=== PATIENT | male | born 1985 | race Caucasian/White ===

== ENCOUNTER 2016-09-24 11:58 | Emergency (ER) | payer SELFPAY ==
[2016-09-24 12:39] VITALS: BP 137/88
[2016-09-24] MEDS ORDERED: Naproxen TAB* 250 MG PO ONE (13:45)
[2016-09-24] MEDS ORDERED: Cyclobenzaprine TAB* 10 MG PO ONE (13:45)
--- NOTE | 2016-09-24 13:55 | UC ---
Back Pain HPI - HPI Summary HPI Summary: Bent over at work about 4 hours ago, picked up heavy crate and felt sudden sharp pain in mid/L lower back. Had trouble standing up right away. Denies any leg weakness or radiating pain, no numbness in saddle region. No hx of back injury or surgery. - History of Current Complaint Chief Complaint: UCBackPain Stated Complaint: BACK INJURY Time Seen by Provider: 09/24/16 13:38 Hx Obtained From: Patient Onset/Duration: Sudden Onset Timing: Constant Severity Initially: Moderate Severity Currently: Moderate Back Pain: Is Discrete @ Character: Sharp - with movement, Aching, Spasmodic, Stiffness Aggravating: Movement, Walking Alleviating: Rest Associated Signs And Symptoms: Negative: Swelling, Redness, Bruising, Weakness, Numbness, Tingling, Abdominal Pain, Bladder Incontinence, Bowel Incontinence - Allergies/Home Medications Allergies/Adverse Reactions: Allergies Allergy/AdvReac Type Severity Reaction Status Date / Time Cherries Allergy Itching Uncoded 09/24/16 12:41 Seasonal Allergies Allergy Eyes Uncoded 09/24/16 12:39 Itchy/Swollen/Red/Watery PMH/Surg Hx/FS Hx/Imm Hx Previously Healthy: Yes Endocrine History Of: Denies: Diabetes, Thyroid Disease Cardiovascular History Of: Denies: Cardiac Disorders, Hypertension Respiratory History Of: Denies: COPD, Asthma GI/ History Of: Denies: Ulcer - Surgical History Surgical History: None - Family History Known Family History: Negative: Blood Disorder - Social History Occupation: Employed Full-time - [employer] Alcohol Use: Daily Alcohol Amount: couple beers after work Substance Use Type: None Smoking Status (MU): Light Every Day Tobacco Smoker Type: Cigarettes Amount Used/How Often: 3 cigs per day Have You Smoked in the Last Year: Yes Household Exposure Type: Cigarettes - Immunization History Most Recent Tetanus Shot: 2012 Review of Systems Constitutional: Negative Skin: Negative Eyes: Negative ENT: Negative Respiratory: Negative Cardiovascular: Negative Gastrointestinal: Negative Genitourinary: Negative Motor: Negative Neurovascular: Negative Musculoskeletal: Myalgia Neurological: Negative Psychological: Negative All Other Systems Reviewed And Are Negative: Yes Physical Exam Triage Information Reviewed: Yes Appearance: Well-Appearing, Pain Distress - with movement Vital Signs: Initial Vital Signs Pulse 95 09/24/16 12:31 Resp 18 09/24/16 12:31 BP 137/88 09/24/16 12:31 Pulse Ox 97 09/24/16 12:31 Vital Signs Reviewed: Yes Eye Exam: Normal, Other - PERRL Eyes: Positive: Conjunctiva Clear ENT Exam: Normal ENT: Positive: Normal ENT inspection, Hearing grossly normal, Pharynx normal, TMs normal Dental Exam: Normal Neck exam: Normal Neck: Positive: Supple, Nontender, No Lymphadenopathy Respiratory Exam: Normal Respiratory: Positive: Chest non-tender, Lungs clear, Normal breath sounds, No respiratory distress, No accessory muscle use Cardiovascular Exam: Normal Cardiovascular: Positive: RRR, No Murmur Musculoskeletal: Positive: Strength Intact, ROM Limited @ - back Neurological Exam: Normal - DTRs 2+ BLE Psychological Exam: Normal Skin Exam: Normal Back Pain Course/Dx - Differential Dx/Diagnosis Provider Diagnoses: Low back strain Discharge - Discharge Plan Condition: Stable Disposition: HOME Prescriptions: Cyclobenzaprine TAB* [Flexeril TAB*] 10 mg PO TID PRN #15 tab PRN Reason: Pain Naproxen Sodium 500 mg PO BID #20 tab Patient Education Materials: Low Back Strain (ED), Lower Back Exercises (ED) Forms: *Work Release Referrals: No Primary Care Phys,NOPCP [Primary Care Provider] - Additional Instructions: Wait at least 5 days before starting low back exercises. Then try to do them twice per day.
== END 2016-09-24 14:23 | disposition home or self-care (01) ==
LOC: UCEAST 11:58
DX: S39.012A Strain of muscle, fascia and tendon of lower back, initial encounter (principal); X50.0XXA Overexertion from strenuous movement or load, initial encounter; Y93.89 Activity, other specified; Y92.9 Unspecified place or not applicable; Y99.0 Civilian activity done for income or pay; R03.0 Elevated blood-pressure reading, without diagnosis of hypertension; F17.210 Nicotine dependence, cigarettes, uncomplicated
CPT/HCPCS: 99202; A9270-GY; G0463

== ENCOUNTER 2016-09-27 13:33 | Emergency (ER) | payer SELFPAY ==
[2016-09-27 15:11] VITALS: BP 153/81
--- NOTE | 2016-09-27 15:24 | UC ---
UC General HPI - HPI Summary HPI Summary: Patient was seen for back injury 2 days aog. he is still in pain and has a follow up appointment with his doctor on 10/05, has not been able to work do to pain. looking to get a work note till appointment on tuesday. pain is in the upper low back, spasm noted on left side. - History of Current Complaint Chief Complaint: UC Stated Complaint: FOLLOW UP BACK INJURY Time Seen by Provider: 09/27/16 15:13 Hx Obtained From: Patient Onset/Duration: Sudden Onset, Lasting Days Timing: Constant Onset Severity: Severe Pain Intensity: 7 - Allergy/Home Medications Allergies/Adverse Reactions: Allergies Allergy/AdvReac Type Severity Reaction Status Date / Time Cherries Allergy Itching Uncoded 09/27/16 15:06 Seasonal Allergies Allergy Eyes Uncoded 09/27/16 15:06 Itchy/Swollen/Red/Watery PMH/Surg Hx/FS Hx/Imm Hx Previously Healthy: Yes Endocrine History Of: Denies: Diabetes, Thyroid Disease Cardiovascular History Of: Denies: Cardiac Disorders, Hypertension Respiratory History Of: Denies: COPD, Asthma GI/ History Of: Denies: Ulcer - Surgical History Surgical History: None - Family History Known Family History: Negative: Blood Disorder - Social History Alcohol Use: Daily Alcohol Amount: couple beers after work Substance Use Type: None Smoking Status (MU): Light Every Day Tobacco Smoker Type: Cigarettes Amount Used/How Often: 3 cigs per day Have You Smoked in the Last Year: Yes Household Exposure Type: Cigarettes - Immunization History Most Recent Influenza Vaccination: none Most Recent Tetanus Shot: 2012 Review of Systems Constitutional: Negative Skin: Negative Eyes: Negative ENT: Negative Respiratory: Negative Cardiovascular: Negative Gastrointestinal: Negative Genitourinary: Negative Motor: Negative Neurovascular: Negative Musculoskeletal: Arthralgia, Decreased ROM, Myalgia Neurological: Negative Psychological: Negative All Other Systems Reviewed And Are Negative: Yes Physical Exam Triage Information Reviewed: Yes Appearance: Well-Nourished, Ill-Appearing, Pain Distress Vital Signs: Initial Vital Signs Temp 99.1 F 09/27/16 15:07 Pulse 77 09/27/16 15:07 Resp 16 09/27/16 15:07 BP 153/81 09/27/16 15:07 Pulse Ox 98 09/27/16 15:07 Vital Signs Reviewed: Yes Eye Exam: Normal Eyes: Positive: Conjunctiva Clear ENT Exam: Normal ENT: Positive: Normal ENT inspection, Hearing grossly normal, Pharynx normal, TMs normal Dental Exam: Normal Neck exam: Normal Neck: Positive: Supple, Nontender, No Lymphadenopathy Respiratory Exam: Normal Respiratory: Positive: Chest non-tender, Lungs clear, Normal breath sounds Cardiovascular Exam: Normal Cardiovascular: Positive: RRR, No Murmur, Pulses Normal Abdominal Exam: Normal Abdomen Description: Positive: Nontender, No Organomegaly, Soft Bowel Sounds: Positive: Present Musculoskeletal Exam: Normal Musculoskeletal: Positive: Strength Limited @, ROM Limited @ - in low back ext and flex, cannot straightn up all the way without pain Neurological Exam: Normal Psychological Exam: Normal Skin Exam: Normal Course/Dx - Course Course Of Treatment: hx obtained, exam performed. no prescriptions, work note given. - Differential Dx - Multi-Symptom Provider Diagnoses: low back strain/spasm Discharge - Discharge Plan Condition: Stable Disposition: HOME Patient Education Materials: Back Pain (ED) Forms: *Work Release Additional Instructions: continue medications, heat as necessary, follow up with your doctor on 10/05/16.
== END 2016-09-27 15:46 | disposition home or self-care (01) ==
LOC: UCEAST 13:33
DX: S39.012D Strain of muscle, fascia and tendon of lower back, subsequent encounter (principal); X58.XXXD Exposure to other specified factors, subsequent encounter; M62.830 Muscle spasm of back; F17.210 Nicotine dependence, cigarettes, uncomplicated
CPT/HCPCS: 99211; G0463

== ENCOUNTER 2016-11-24 12:00 | Emergency (ER) | payer OTHER ==
[2016-11-24 13:52] VITALS: BP 142/86
--- NOTE | 2016-11-24 14:06 | UC ---
Throat Pain/Nasal Ayush HPI - HPI Summary HPI Summary: pink itchy eyes bilaterally with nasal congestion - History of Current Complaint Chief Complaint: UCEye Stated Complaint: PINK,GOOEY EYES Time Seen by Provider: 11/24/16 13:57 Hx Obtained From: Patient Onset/Duration: Sudden Onset, Lasting Days - 1, Still Present Severity: Mild Pain Intensity: 3 Pain Scale Used: 0-10 Numeric Cough: None Associated Signs & Symptoms: Positive: Nasal Discharge Related History: Seasonal Allergies - Allergies/Home Medications Allergies/Adverse Reactions: Allergies Allergy/AdvReac Type Severity Reaction Status Date / Time Cherries Allergy Itching Uncoded 09/27/16 15:06 Seasonal Allergies Allergy Eyes Uncoded 09/27/16 15:06 Itchy/Swollen/Red/Watery Home Medications: Home Medications Loratadine [Claritin 10 MG CAP] 10 mg PO 11/24/16 [History] Naproxen Sodium [Naproxen Sodium 500 MG TAB] 500 mg PO BID PRN 11/24/16 [ History Confirmed 11/24/16] PMH/Surg Hx/FS Hx/Imm Hx Previously Healthy: Yes Endocrine History Of: Denies: Diabetes, Thyroid Disease Cardiovascular History Of: Denies: Cardiac Disorders, Hypertension Respiratory History Of: Denies: COPD, Asthma GI/ History Of: Denies: Ulcer - Surgical History Surgical History: None - Family History Known Family History: Positive: None Negative: Blood Disorder - Social History Occupation: Employed Full-time Lives: With Family Alcohol Use: Occasionally Alcohol Amount: couple beers after work Substance Use Type: None Smoking Status (MU): Light Every Day Tobacco Smoker Type: Cigarettes Amount Used/How Often: 3 cigs per day Have You Smoked in the Last Year: Yes Household Exposure Type: Cigarettes - Immunization History Most Recent Influenza Vaccination: none Most Recent Tetanus Shot: 2012 Review of Systems Constitutional: Negative Skin: Negative Eyes: Drainage, Eye Redness ENT: Negative Respiratory: Negative Cardiovascular: Negative Gastrointestinal: Negative Genitourinary: Negative Motor: Negative Neurovascular: Negative Musculoskeletal: Negative Neurological: Negative Psychological: Negative All Other Systems Reviewed And Are Negative: Yes Physical Exam Triage Information Reviewed: Yes Appearance: Well-Appearing, No Pain Distress, Well-Nourished Vital Signs: Initial Vital Signs Temp 98.4 F 11/24/16 13:49 Pulse 97 11/24/16 13:49 Resp 16 11/24/16 13:49 BP 142/86 11/24/16 13:49 Pulse Ox 98 11/24/16 13:49 Vital Signs Reviewed: Yes Eye Exam: Normal Eyes: Positive: Conjunctiva Inflamed, Discharge, Other: - perrla, eomi, fundascopic exam wnl ENT Exam: Normal ENT: Positive: Normal ENT inspection, Hearing grossly normal, Pharynx normal, Nasal congestion, Nasal drainage. Negative: TMs normal, Tonsillar swelling, Tonsillar exudate, Trismus, Muffled/hoarse voice Dental Exam: Normal Neck exam: Normal Neck: Positive: Supple, Nontender Respiratory Exam: Normal Respiratory: Positive: No respiratory distress, No accessory muscle use Cardiovascular Exam: Normal Cardiovascular: Positive: RRR, Pulses Normal, Brisk Capillary Refill Musculoskeletal Exam: Normal Musculoskeletal: Positive: Strength Intact, ROM Intact, No Edema Neurological Exam: Normal Neurological: Positive: Alert, Muscle Tone Normal Psychological Exam: Normal Skin Exam: Normal Throat Pain/Nasal Course/Dx - Course Assessment/Plan: zaditor drops, flonase, zyrtec, infor rg hypertension, follow with pcp - Differential Dx/Diagnosis Differential Diagnosis/HQI/PQRI: Laryngitis, Pharyngitis, Sinusitis, URI Provider Diagnoses: Allergic Rhinnitis, HBP with out dx Discharge - Discharge Plan Condition: Stable Disposition: HOME Prescriptions: Fluticasone NASAL SPRAY 50MCG* [Flonase NASAL SPRAY 50MCG*] 2 spray BOTH NARES DAILY #1 btl Ketotifen Fumarate (Ophth) [Zaditor] 0.025 % OP BID #1 saira Patient Education Materials: Allergic Rhinitis (ED), DASH Eating Plan (ED), Hypertension (ED), Conjunctivitis (ED) Forms: *Work Release Referrals: [facility] [place] [facility] [Outside] - 1 Week No Primary Care Phys,NOPCP [Primary Care Provider] -
== END 2016-11-24 14:18 | disposition home or self-care (01) ==
LOC: UCEAST 12:00
DX: J30.9 Allergic rhinitis, unspecified (principal); R03.0 Elevated blood-pressure reading, without diagnosis of hypertension; F17.210 Nicotine dependence, cigarettes, uncomplicated
CPT/HCPCS: 99212; G0463

== ENCOUNTER 2018-08-11 11:21 | Emergency (ER) | payer OTHER ==
--- NOTE | 2018-08-11 12:18 | ED ---
Complex/Multi-Sys Presentation - HPI Summary HPI Summary: Patient is a 32 y/o M presenting to ED with complaints of cold Sx onsetting two days ago. His daughter is sick at home, children have not had flu shot. He reports congestion, body aches, dizziness, cough, SANDERSON. Max fever of 102 F reported. He denies chest pain, SOB, sore throat, rhinorrhea, palpitations, tingling in hands. Patient reports that he has been having intermittent upper left arm numbness and diarrhea as well. FMHx of diabetes. He reports daily alcohol usage, smokes cigarettes daily, no recreational drug usage. On triage, pain is rated 7/10. Nothing is noted to aggravate/alleviate Sx. Home medications , allergies and nurse's note are reviewed. - History Of Current Complaint Chief Complaint: EDFluSymptoms Time Seen by Provider: 08/11/18 12:14 Hx Obtained From: Patient Onset/Duration: Lasting Days - onset two days ago, Still Present Timing: Constant, Days - two days ago Severity Currently: Severe - 7/10 Severity Initially: Severe - 7/10 Location: Pain At: - diffuse body aches Character: Dull - aching Aggravating Factor(s): nothing Alleviating Factor(s): nothing Associated Signs And Symptoms: Positive: Dizziness, Cough, Diarrhea, Fever, Other - POSITIVE - BODY ACHES, CONGESTION, NUMBNESS OF UPPER LEFT ARM; NEGATIVE - SORE THROAT, RHINORRHEA, TINGLING IN HANDS,. Negative: SOB, Chest Pain, Palpitations - Allergies/Home Medications Allergies/Adverse Reactions: Allergies Allergy/AdvReac Type Severity Reaction Status Date / Time Cherries Allergy Itching Uncoded 09/27/16 15:06 Seasonal Allergies Allergy Eyes Uncoded 09/27/16 15:06 Itchy/Swollen/Red/Watery PMH/Surg Hx/FS Hx/Imm Hx Endocrine/Hematology History: Denies: Hx Diabetes, Hx Thyroid Disease Cardiovascular History: Denies: Hx Hypertension Respiratory History: Denies: Hx Asthma, Hx Chronic Obstructive Pulmonary Disease (COPD) GI History: Denies: Hx Ulcer Infectious Disease History: No Infectious Disease History: Denies: Hx Hepatitis, Hx Human Immunodeficiency Virus (HIV), History Other Infectious Disease, Traveled Outside the [place] in Last 30 Days - Family History Known Family History: Positive: Diabetes - mother Negative: Cardiac Disease - Social History Alcohol Use: Occasionally Alcohol Amount: couple beers after work Substance Use Type: Reports: None Smoking Status (MU): Light Every Day Tobacco Smoker Type: Cigarettes Amount Used/How Often: 3 cigs per day Have You Smoked in the Last Year: Yes Review of Systems Positive: Fever, Other - POSITIVE - BODY ACHES, CONGESTION Negative: Sore Throat, Nasal Discharge - RHINORRHEA DENIED Negative: Palpitations, Chest Pain Positive: Cough. Negative: Shortness Of Breath Positive: Diarrhea Neurological: Other - POSITIVE - DIZZINESS; NEGATIVE - TINGLING IN HANDS Positive: Headache, Numbness - LEFT ARM NUMBNESS INTERMITTENTLY All Other Systems Reviewed And Are Negative: Yes Physical Exam - Summary Physical Exam Summary: Appearance: Well appearing, no pain distress Skin: warm, dry, reflects adequate perfusion Head/face: normal Eyes: EOMI, JOSELUIS ENT: mucous membranes moist, clear nasal discharge, no exudates Neck: supple, non-tender Respiratory: CTA, breath sounds present Cardiovascular: RRR, pulses symmetrical Abdomen: non-tender, soft Bowel Sounds: present Musculoskeletal: normal, strength/ROM intact Neuro: normal, sensory motor intact, A&Ox3 Triage Information Reviewed: Yes Vital Signs On Initial Exam: Initial Vitals Temp Pulse Resp BP Pulse Ox 99.5 F 118 18 141/91 99 08/11/18 11:30 08/11/18 11:30 08/11/18 11:30 08/11/18 11:30 08/11/18 11:30 Vital Signs Reviewed: Yes Diagnostics - Vital Signs Vital Signs Temp Pulse Resp BP Pulse Ox 08/11/18 11:30 99.5 F 118 18 141/91 99 - Laboratory Lab Statement: Any lab studies that have been ordered have been reviewed, and results considered in the medical decision making process. Complex Multi-Symp Course/Dx Course Of Treatment: Nurse's notes reviewed. Patient with flulike symptoms who tested positive for influenza A. He is outside treatment window for Tamiflu. Treat symptomatically. - Diagnoses Differential Diagnoses/HQI/PQRI: Other - URI, bronchitis, flu Provider Diagnoses: Influenza A Discharge - Sign-Out/Discharge Documenting (check all that apply): Patient Departure - discharge - Discharge Plan Condition: Improved Disposition: HOME Patient Education Materials: Influenza (ED) Forms: *Work Release Referrals: [facility] [Outside] [facility] [Outside] Additional Instructions: Drink plenty of fluids, Tylenol/ibuprofen as needed for fever or body aches. Nasal decongestant as needed. Humidifier while sleeping. Return with difficulty breathing, unable to drink fluids, worse, new symptoms or other concerns. - Billing Disposition and Condition Condition: IMPROVED Disposition: Home - Attestation Statements Document Initiated by Carmenibjaren: Yes Documenting Scribe: DEANGELO TIM Provider For Whom Scribe is Documenting (Include Credential): GONZALEZ VENEGAS MD Scribe Attestation: DEANGELO Payne , scribed for GONZALEZ VENEGAS MD on 08/11/18 at 1759. Scribe Documentation Reviewed: Yes Provider Attestation: The documentation as recorded by the DEANGELO grimaldo accurately reflects the service I personally performed and the decisions made by , GONZALEZ VENEGAS MD Status of Scribe Document: Viewed
[2018-08-11] MEDS ORDERED: NS 0.9% 1000 ML** 1,000 ML IV ONE (12:26)
[2018-08-11] MEDS ORDERED: Dexamethasone IV* 4 MG/ML 1 ML (4 MG) IV SLOW PU ONE (12:26)
[2018-08-11 12:44] LABS: Influenza A Molecular POSITIVE (Negative)
[2018-08-11 13:28] VITALS: BP 138/82
== END 2018-08-11 13:27 | disposition home or self-care (01) ==
LOC: ED 11:21
DX: J10.1 Influenza due to other identified influenza virus with other respiratory manifestations (principal); F17.210 Nicotine dependence, cigarettes, uncomplicated
CPT/HCPCS: 96374; 99282; J1100

== ENCOUNTER 2018-12-27 13:16 | Emergency (ER) | payer OTHER ==
--- NOTE | 2018-12-27 15:24 | ED ---
Shortness of Breath - HPI Summary HPI Summary: Pt is a 33 year old M presenting to [facility] with a chief complaint of shortness of breath. The pt reports falling asleep last night at 0100 and then waking at 0245 with anxiety. The pt reports feeling out of breath and tingling on his right elbow when he woke up. At work the pt reports the same symptoms and dizziness that would wax and wane throughout the day. The pt describes it as a tightness in the chest that is rated a 6/10 in severity and that he cant get a full breath. The pt denies nausea, rhinorrhea, coughing, sore throat, lower extremity edema or abdominal pain. The pt also reports no recent long distance travels. - History of Current Complaint Chief Complaint: EDShortnessOfBreath Time Seen by Provider: 12/27/18 15:14 Hx Obtained From: Patient Onset/Duration: Sudden Onset, Lasting Hours - since 0100 12/27/18 Timing: Constant - Constant feeling of SOB and anxiety, dizziness was waxing and waning Current Severity: Mild Dyspnea At: Exertion Aggrevating Factors: Movement Alleviating Factors: Nothing Associated Signs & Symptoms: Negative - Rhinorrhea, cough, sore throat, LE Edema , Nausea, abdominal pain. Positive: anxiety, SOB, tingling down the R elbow, Dizzy - Allergy/Home Medications Allergies/Adverse Reactions: Allergies Allergy/AdvReac Type Severity Reaction Status Date / Time parnell Allergy Itching Verified 12/27/18 13:28 PMH/Surg Hx/FS Hx/Imm Hx Previously Healthy: No Endocrine/Hematology History: Denies: Hx Diabetes, Hx Thyroid Disease Cardiovascular History: Denies: Hx Hypertension Respiratory History: Denies: Hx Asthma, Hx Chronic Obstructive Pulmonary Disease (COPD) GI History: Denies: Hx Ulcer Infectious Disease History: No Infectious Disease History: Denies: Hx Hepatitis, Hx Human Immunodeficiency Virus (HIV), History Other Infectious Disease, Traveled Outside the [place] in Last 30 Days - Family History Known Family History: Positive: Diabetes - mother Negative: Cardiac Disease, Blood Disorder - Social History Alcohol Use: Occasionally Alcohol Amount: couple beers after work Hx Substance Use: No Substance Use Type: Reports: None Hx Tobacco Use: Yes Smoking Status (MU): Light Every Day Tobacco Smoker Type: Cigarettes Amount Used/How Often: 3 cigs per day Have You Smoked in the Last Year: Yes Review of Systems Negative: Sore Throat, Nasal Discharge Positive: Chest Pain - tightness Positive: Shortness Of Breath. Negative: Cough Negative: Abdominal Pain, Nausea Negative: Edema Neurological: Other - Positive: tingling down the R arm Positive: Anxious All Other Systems Reviewed And Are Negative: Yes Physical Exam - Summary Physical Exam Summary: Constitutional: Well-developed, Well-nourished, Alert. (-) Distressed Skin: Warm, Dry HENT: Normocephalic; Atraumatic Eyes: Conjunctiva normal Neck: Musculoskeletal ROM normal neck. (-) JVD, (-) Stridor, (-) Tracheal deviation Cardio: Rhythm regular, rate normal, Heart sounds normal; Intact distal pulses; The pedal pulses are 2+ and symmetric. Radial pulses are 2+ and symmetric. (-) Murmur Pulmonary/Chest wall: Effort normal. (-) Respiratory distress, (-) Wheezes, (-) Rales Abd: Soft, (-) tenderness, (-) Distension, (-) Guarding, (-) Rebound Musculoskeletal: (-) Edema Lymph: (-) Cervical adenopathy Neuro: Alert, Oriented x3 Psych: appears mildly anxious Triage Information Reviewed: Yes Vital Signs On Initial Exam: Initial Vitals Temp Pulse Resp BP Pulse Ox 97.9 F 74 16 152/107 100 12/27/18 13:23 12/27/18 13:23 12/27/18 13:23 12/27/18 13:23 12/27/18 13:23 Vital Signs Reviewed: Yes Diagnostics - Vital Signs Vital Signs Temp Pulse Resp BP Pulse Ox 12/27/18 14:49 71 16 151/105 96 12/27/18 13:23 97.9 F 74 16 152/107 100 - Laboratory Result Diagrams: 12/27/18 15:35 12/27/18 15:35 Lab Statement: Any lab studies that have been ordered have been reviewed, and results considered in the medical decision making process. - Radiology CXR Radiology Interpretation Completed By: Radiologist Summary of Radiographic Findings: NO ACTIVE CARDIOPULMONARY DISEASE IS NOTED. ED Physician has reviewed this report - EKG 1532 Cardiac Rate: NL - 75 BPM EKG Rhythm: Sinus Rhythm Summary of EKG Findings: Normal sinus rhythm at 75 bpm, normal MO, normal QRS, normal QTc, normal axis, normal ST, T-waves flattened in AVF, nonspecific EKG Re-Evaluation - Re-Evaluation First Eval Re-Evaluation Time: 17:16 Change: Improved Comment: Pt reports feeling better and will be discharged. Course/Dx - Course Course Of Treatment: Pt is a 33 year old M presenting to [facility] with a chief complaint of shortness of breath. The pt reports falling asleep last night at 0100 and then waking at 0245 with anxiety. The pt reports feeling out of breath and tingling on his right elbow when he woke up. The pt had abnormal values in WBC 11.2, RBC 3.43, Hgb 9.3, Hct 29, MPV 7.1, Absolute neuts 9.7, CO2 21, BUN 50 , Creatinine 7.72, BUN/Creatinine Ration 6.5, Glucose 102. The pt also had a CXR that showed No active cardiopulmonary disease is noted. The pt also recieved an EKG that showed normal sinus rhythm at 75 bpm, normal MO, normal QRS , normal QTc, normal axis, normal ST, T-waves flattened in AVF, nonspecific EKG. The pt will be discharged home with instructions to follow up with a PCP from [facility] in three days and to return to the ED with any new or worsening symptoms. The pt will be discharded with a Dx of anxiety and chest pain. - Diagnoses Provider Diagnoses: Anxiety, Chest pain Discharge - Sign-Out/Discharge Documenting (check all that apply): Patient Departure - discharge Patient Received Moderate/Deep Sedation with Procedure: No - Discharge Plan Condition: Stable Disposition: HOME Patient Education Materials: Chest Pain (ED), Anxiety (ED) Print Language: LUXEMBOURGISH Referrals[facility] [Provider Group] [facility] [Outside] - 3 Days - Billing Disposition and Condition Condition: STABLE Disposition: Home - Attestation Statements Document Initiated by Scribe: Yes Documenting Scribe: Robert Post Provider For Whom Shalonda is Documenting (Include Credential): Ana Gonzalez MD Scribe Attestation: Robert Payne, scribed for Ana Lux MD on 12/27/18 at 1904. Scribe Documentation Reviewed: Yes Provider Attestation: The documentation as recorded by the Robert grimaldo accurately reflects the service I personally performed and the decisions made by me, Ana Lux MD Status of Scribe Document: Viewed
[2018-12-27] MEDS ORDERED: ALPRAZolam TAB* 0.25 MG PO ONE (15:25)
[2018-12-27 15:43] LABS: ABS Eosinophils 0.1 10^3/ul (0-0.6); ABS Lymphocytes 1.4 10^3/ul (1.0-4.8); ABS Monocytes 0.4 10^3/ul (0-0.8); ABS Neutrophils 6.2 10^3/ul (1.5-7.7); Eosinophil % 0.7 %; Hematocrit 44 % (42-52); Mean Corpuscular HGB Conc 34 g/dL (31-36); Mean Corpuscular Hemoglobin 30 pg (27-31); Mean Corpuscular Volume 89 fL (80-94); Mean Platelet Volume 8.3 fL (7.4-10.4); Nucleated Red Blood Cells % 0.3; Platelet Count 249 10^3/uL (150-450); Red Blood Count 4.95 10^6 /uL (4.18-5.48); Red Cell Distribution Width 13 % (10.5-15); White Blood Count 8.1 10^3/uL (3.5-10.8)
[2018-12-27 16:02] LABS: Albumin 4.9 g/dL (3.2-5.2); Albumin/Globulin Ratio 1.6 (1-3); BUN/Creatinine Ratio 9.7 (8-20); Calcium 10.3 mg/dL (8.6-10.3); EGFR African American 112.5 (>60); Potassium 3.8 mmol/L (3.5-5.0); Total Bilirubin 1.1 mg/dL (0.2-1.0); Total Protein 7.9 g/dL (6.4-8.9)
[2018-12-27 17:47] VITALS: BP 133/80
== END 2018-12-27 17:46 | disposition home or self-care (01) ==
LOC: ED 13:16
DX: R07.9 Chest pain, unspecified (principal); F41.9 Anxiety disorder, unspecified; F17.210 Nicotine dependence, cigarettes, uncomplicated
CPT/HCPCS: 36415; 71045; 80053; 83605; 84484; 85025; 93005; 99283; A9270-GY